=== PATIENT | female | born 1995 | race Caucasian/White ===

== ENCOUNTER 2020-11-02 20:38 | Emergency (ER) | payer MEDICARE, OTHER ==
[~2020-11-02 20:38] MED LIST: PREDNISONE 20MG20 MG PO; ZOFRAN4 MG PO; ZOVIRAX200 MG PO
[2020-11-02 21:07] LABS: BASOPHIL 0.5 % (0-2); EOSINOPHIL 0.7 % (0-5); HCT 38.3 % (37.0-47.0); LYMPHOCYTE 51.1 % (15-48); MCH 28.8 pg (25.0-31.0); MCHC 33.9 g/dL (32.0-36.0); MCV 84.9 fL (78.0-100.0); MPV 10.1 fL (6.0-9.5); NEUTROPHIL 40.5 % (41-80); NRBC 0; PLT 234 K/uL (150-400); RBC 4.51 M/uL (4.20-5.40); RDW 12.2 % (11.5-14.0)
[2020-11-02 21:28] LABS: ALBUMIN 4.1 g/dL (3.4-5.0); BILIRUBIN - TOTAL 0.1 mg/dL (0.2-1.0); BUN/CREAT RATIO (CALC) 22.1 RATIO; CREATININE 0.77 mg/dL (0.51-0.95); GLOBULIN (CALCULATION) 3.2 g/dL; POTASSIUM 3.6 mmol/L (3.5-5.1); TOTAL PROTEIN 7.3 g/dL (6.4-8.2)
[2020-11-02 23:01] LABS: BILIRUBIN NEGATIVE (NEGATIVE); BLOOD NEGATIVE Ery/uL (NEGATIVE); CLARITY CLEAR (CLEAR); COLOR YELLOW (YELLOW); GLUCOSE (U) NORMAL (NORMAL); LEUKOCYTES NEGATIVE Leu/uL (NEGATIVE); NITRITE NEGATIVE (NEGATIVE); PROTEIN NEGATIVE (NEGATIVE); UROBILINOGEN 0.2 mg/dL (0.2-1.0)
== END 2020-11-03 00:32 | disposition home or self-care (01) ==
LOC: FER 20:38
PROVIDERS: Emergency Medicine Emergency Medical Services
DX: G40.409 Other generalized epilepsy and epileptic syndromes, not intractable, without status epilepticus (principal); Z86.73 Personal history of transient ischemic attack (TIA), and cerebral infarction without residual deficits; Z88.8 Allergy status to other drugs, medicaments and biological substances; Z79.899 Other long term (current) drug therapy; Z98.2 Presence of cerebrospinal fluid drainage device; Z98.890 Other specified postprocedural states
CPT/HCPCS: 36415; 80053; 81003; 83735; 85025; 93005; J1885; J2060; J7030

== ENCOUNTER 2020-11-19 12:32 | Emergency (ER) | payer MEDICARE, OTHER | END 2020-11-19 18:59 | disposition other institution (70) | LOC: FER 12:32 | DX: G40.901 Epilepsy, unspecified, not intractable, with status epilepticus (principal); Z88.8 Allergy status to other drugs, medicaments and biological substances | CPT/HCPCS: 96372; J2060; J2250; J3360 ==